=== PATIENT | male | born 1965 | race Caucasian/White ===

== ENCOUNTER → 2021-01-24 13:53 | Outpatient (CLI) | payer BC, SELFPAY ==
--- NOTE | ~2021-01-24 | XR_ITS ---
EXAMINATION: XR lumbar spine 2-3V EXAM DATE: 01/24/2021 14:49 INDICATION: Lumbar radiculopathy. Numbness and tingling in legs and feet. TECHNIQUE: Lumber spine frontal, lateral, lateral L5-S1 projections for interpretation. Correlation made with prior lumbar MRI examination 02/14/2017. FINDINGS: There is mild to moderate disc disease at L1-2 and L2-3 more than the lower lumbar levels. Small to moderate-sized thoracolumbar endplate osteophytes. There is mild to moderate lumbar facet ar thropathy. There is 3 mm retrolisthesis L2 on L3 and 2 mm retrolisthesis L3 on L4. No spondylolysis. Sacrum, sacroiliac joints, sacral arcuate lines are intact. Paraspinal soft tissue is unremarkable. IMPRESSION: Mild to moderate lumbar spondylosis. Reviewed, dictated and finalized at location A.
--- NOTE | ~2021-01-24 | XR_ITS ---
EXAMINATION: XR thoracic spine 2V EXAM DATE: 01/24/2021 14:49 INDICATION: Back pain. TECHNIQUE: Frontal and lateral projections of the thoracic spine as well as lateral swimmers projecti on of the upper thoracic spine for interpretation. There is no prior study for comparison. FINDINGS: There is mild mid and lower thoracic disc disease. Vertebral body heights are maintained. The vertebral bodies are aligned in the AP dimension. There are no bony erosions identified. Paraspin al soft tissue is unremarkable. IMPRESSION: Mild mid and lower thoracic disc disease. Reviewed, dictated and finalized at location A.
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
== END ==
PROVIDERS: Visit Provider Psychiatry & Neurology Neurology
DX: M47.26 Other spondylosis with radiculopathy, lumbar region (principal); M51.34 Other intervertebral disc degeneration, thoracic region; M47.22 Other spondylosis with radiculopathy, cervical region; Z98.1 Arthrodesis status
CPT/HCPCS: 72040; 72070; 72100